=== PATIENT | female | born 1960 | race Caucasian/White ===

== ENCOUNTER → 2017-12-10 | Outpatient (CLI) | payer OTHER ==
--- NOTE | 2017-12-10 12:58 | RAD ---
DATE: 12/10/2017 EXAM: MAMMO JORDANA SCREENING BILATERAL HISTORY: Routine screening COMPARISON: 05/25/2015 This study was interpreted with the benefit of Computerized Aided Detection (CAD). The breast parenchyma is heterogeneously dense, which could reduce sensitivity of mammography. Breast parenchyma level C. FINDINGS: 2-D and 3-D tomosynthesis imaging was performed in CC and MLO projections. The fibroglandular tissues are heterogeneous in a somewhat nodular pattern. At the 9-10:00 location in the right breast approximately 2 cm in the nipple there is a new 13 mm nodule as best delineated on CC tomosynthesis images #40. At the 2-3:00 location in the left breast approximately 8 cm from the nipple there is a 9 mm nodule now evident. It is best delineated on cc tomosynthesis images #45. In retrospect, a slightly smaller opacity was present in this region on the previous study. More inferiorly and posteriorly in the lateral left breast there is an additional 11 mm nodule as best seen on the oblique tomosynthesis images #30. This was not evident on the previous study. No suspicious microcalcifications are evident. Benign-appearing lymph nodes are present in both axillary regions. IMPRESSION: Bilateral breast nodules as described above. Bilateral breast ultrasound are suggested for further evaluation. BI-RADS CATEGORY: 0 INCOMPLETE: NEEDS ADDITIONAL IMAGING EVALUATION AND/OR PRIOR MAMMOGRAMS FOR COMPARISON. RECOMMENDED FOLLOW-UP: ADD ADDITIONAL IMAGING PQRS compliance statement: Patient information was entered into a reminder system with a target due date for the next mammogram. Mammography is a sensitive method for finding small breast cancers, but it does not detect them all and is not a substitute for careful clinical examination. A negative mammogram does not negate a clinically suspicious finding and should not result in delay in biopsying a clinically suspicious abnormality. "Our facility is accredited by the [employer] Mammography Program."
== END | disposition home or self-care (01) ==
LOC: MAMMO 11:25
PROVIDERS: ATTEND Family Medicine
DX: Z12.31 Encounter for screening mammogram for malignant neoplasm of breast (principal)
CPT/HCPCS: 77063; 77067

== ENCOUNTER → 2017-12-13 | Outpatient (CLI) | payer OTHER ==
--- NOTE | 2017-12-13 16:01 | RAD ---
Bilateral breast ultrasound, 12/10/2017: History: Breast nodules A targeted ultrasound exam of the both breasts was performed. On the right, at the 10:00 location approximately 3 cm in the nipple there is a 12 x 10 x 7 mm predominantly cystic nodule. It contains several thin septations. There is posterior acoustic shadowing. This appears to correspond in location to the mammographic abnormality. On the left, at the 2:30 location approximately 8.5 cm from the nipple there is a smooth oval-shaped nodule measuring 9 x 11 x 4 mm. There are tiny cystic components with echogenic septations. It is wider than tall. It probably represents a complicated cyst or fibrocystic lesion. It appears to correspond in location to one of the nodule seen on the mammograms. At the 4:00 location on the left, approximately 8 cm from the nipple there is another oval-shaped smooth nodule demonstrating similar sonographic characteristics. It measures 13 x 7 x 6 mm. It probably corresponds to the other left breast nodule seen mammographically. At the 3:00 location on the left, approximately 8 cm from the nipple there are 2 additional smaller hypoechoic nodules demonstrating similar sonographic characteristics, one of which measures 7 mm in greatest diameter and the other measures 5 mm. A similar small 5 mm nodule is seen at the 3:00 location approximately 3 cm in the nipple. IMPRESSION: 1. Septated cyst in the right breast corresponding to the mammographic abnormality. 2. Numerous small smooth left breast nodules as described above which probably represent complicated cysts or fibrocystic lesions. 3. Sonographic follow-up in 6 months followed by bilateral mammography at one year is suggested. BI-RADS 3-probably benign findings
== END | disposition home or self-care (01) ==
LOC: US 14:32
PROVIDERS: ATTEND Family Medicine
DX: N60.01 Solitary cyst of right breast (principal)
CPT/HCPCS: 76641

== ENCOUNTER → 2019-01-19 | Outpatient (CLI) | payer OTHER ==
--- NOTE | 2019-01-19 11:36 | RAD ---
Abdominal ultrasound without comparison for abnormal liver function tests. Technique an findings: Real-time grayscale and color and spectral Doppler evaluation of the abdominal organs is performed. Gallbladder is surgically absent. The liver measures 18.1 cm and is notable for diffuse fatty infiltration with no focal parenchymal abnormalities. No intra or extrahepatic biliary ductal dilatation. Common bile duct measures 5 mm. The majority of the pancreas and the aorta are obscured by overlying bowel gas. Visualized portions of the pancreatic head are normal. IVC appears patent, though partially obscured as well. The right kidney measures 10.7 x 4.0 x 4.8 cm and the left measures 11.3 x 3.6 x 5.1 cm. No hydronephrosis or focal parenchymal abnormality involving either kidney. No perinephric fluid. The spleen measures 11.2 cm and is grossly unremarkable. No abdominal ascites is seen. IMPRESSION: 1. Hepatic steatosis.. 2. Prior cholecystectomy. Electronically signed by: Power Durand MD (01/19/2019 11:33 AM) [facility]
--- NOTE | 2019-01-21 16:21 | RAD ---
DATE: 01/19/2019 EXAM: MAMMO JORDANA MCCRACKEN, BREAST BILATERAL HISTORY: Abnormal breast ultrasound exam COMPARISON: 06/14/2011, 05/25/2015, 03/12/2018 screening mammographic exams This study was interpreted with the benefit of Computerized Aided Detection (CAD). Breast Density: HETERO The breast parenchyma is heterogenously dense, which could reduce sensitivity of mammography. Breast parenchyma level C. FINDINGS: Parenchymal distribution is stable. No suspicious calcification or mass in the interval. Asymmetries in small masses are stable. No distortion. Limited bilateral breast ultrasound exam was performed. At the right breast 10:00 region 3 cm from the nipple, there is a 1.25 cm x 1.3 cm x 0.7 similar tall septated cystic structure. At the left breast 2:30 region 8.5 cm from the nipple, there is a 0.5 cm x 0.6 cm x 0.2 cm tall septated cystic structure. Consider o'clock region 3 similar from nipple, there is a 0.5 cm x 0.5 cm x 0.2 similar tall complex cystic structure. Previously described described 3:00 region 8 cm from the nipple and 4:00 region 8 cm from the nipple lesions do not have a corresponding finding on today's exam. IMPRESSION: Stable mammographic exam. Stable breast lesions on ultrasound exam. One year follow-up ultrasound is recommended to assess stability. BI-RADS CATEGORY: 3 PROBABLY BENIGN FINDING(S)-SHORT INTERVAL FOLLOW-UP SUGGESTED RECOMMENDED FOLLOW-UP: 12M 12 MONTH FOLLOW-UP PQRS compliance statement: Patient information was entered into a reminder system with a target due date in one year for the next mammogram. Mammography is a sensitive method for finding small breast cancers, but it does not detect them all and is not a substitute for careful clinical examination. A negative mammogram does not negate a clinically suspicious finding and should not result in delay in biopsying a clinically suspicious abnormality. "Our facility is accredited by the [employer] Mammography Program."
== END | disposition home or self-care (01) ==
LOC: US 07:37
PROVIDERS: ATTEND Family Medicine
DX: K76.0 Fatty (change of) liver, not elsewhere classified (principal); N63.20 Unspecified lump in the left breast, unspecified quadrant; N63.10 Unspecified lump in the right breast, unspecified quadrant; N64.89 Other specified disorders of breast; Z90.49 Acquired absence of other specified parts of digestive tract
CPT/HCPCS: 76641; 76700; 77066; G0279; 77062

== ENCOUNTER → 2019-04-29 | Outpatient (CLI) | payer OTHER ==
--- NOTE | 2019-04-29 12:55 | RAD ---
EXAM: Left shoulder, 3 views. HISTORY: Pain. COMPARISON: None. FINDINGS: 3 views of the left shoulder obtained. There is no fracture, dislocation or subluxation. There is small lucency along the distal clavicle which is likely developmental rather than a subchondral cyst or erosion. IMPRESSION: No acute osseous finding. Electronically signed by: Carmela Canchola MD (04/29/2019 12:52 PM) [id number]
== END | disposition home or self-care (01) ==
LOC: DXRAD 11:41
PROVIDERS: ATTEND Family Medicine
DX: M25.512 Pain in left shoulder (principal)
CPT/HCPCS: 73030

== ENCOUNTER → 2019-12-14 | Outpatient (CLI) | payer OTHER ==
--- NOTE | 2019-12-14 17:28 | RAD ---
DATE: 12/14/2019 1:20 PM EXAM: BREAST BILATERAL, MAMMO JORDANA DIAG BILAT HISTORY: Patient is due for screening but was recommended for short-term follow-up probably benign findings in the left breast COMPARISON: 01/19/2019, 12/10/2017 Bilateral CC and MLO views of the breasts were performed. Bilateral breast tomosynthesis was performed in CC and MLO projections. This study was interpreted with the benefit of Computerized Aided Detection (CAD). Targeted ultrasound of both breasts in the areas of previous sonographic interest was also performed. FINDINGS: Breast Density: HETERO The breast parenchyma Is heterogeneously dense, which could reduce sensitivity of mammography. Breast parenchyma level C No suspicious masses, microcalcifications or architectural distortion is present to suggest malignancy in either breast. The visualized axillae are unremarkable. Targeted ultrasound right breast identified sonographically benign cluster of cysts measuring 1.3 cm at the 10:00 position 3 cm from the nipple. Targeted ultrasound left breast identified parallel orientation hypoechoic circumscribed nodules with varying degrees of low level internal echoes, measuring 5 mm at the 3:00 position 3 cm from the nipple, 8 mm at the 3:00 position 5 cm from the nipple and 5 mm at the 12:00 position 3 cm from the nipple. No suspicious sonographic findings were identified. Retroareolar ultrasound left breast was unremarkable. IMPRESSION: Benign findings on bilateral mammography and targeted breast ultrasound. BI-RADS CATEGORY: 2 BENIGN FINDING(S) RECOMMENDED FOLLOW-UP: 12M 12 MONTH FOLLOW-UP Annual screening mammography is recommended, unless clinically indicated sooner based on symptoms or change in physical exam. PQRS compliance statement: Patient information was entered into a reminder system with a target due date 12/14/2020 for the next mammogram. Mammography is a sensitive method for finding small breast cancers, but it does not detect them all and is not a substitute for careful clinical examination. A negative mammogram does not negate a clinically suspicious finding and should not result in delay in biopsying a clinically suspicious abnormality. "Our facility is accredited by the [employer] Mammography Program."
== END | disposition home or self-care (01) ==
LOC: MAMMO 12:32
PROVIDERS: ATTEND Family Medicine
DX: R92.2 Inconclusive mammogram (principal); N60.01 Solitary cyst of right breast; N63.21 Unspecified lump in the left breast, upper outer quadrant
CPT/HCPCS: 76641; 77066; G0279; 77062

== ENCOUNTER → 2021-08-25 | Outpatient (CLI) | payer OTHER ==
--- NOTE | 2021-08-25 16:45 | RAD ---
Exam: XR SHOULDER_LEFT 2+ VIEWS History: Injury left shoulder exercising. Comparison: 04/29/2019 Findings: Osseous mineralization is normal. No acute fracture or dislocaton. No significant degenerative change s. Soft tissues are unremarkable. Impression: 1. No acute osseous abnormality of the left shoulder. Electronically signed by: Luis Alberto Mays MD (08/25/2021 4:43 PM) [id number]
--- NOTE | 2021-08-28 08:56 | RAD ---
BILATERAL SCREENING MAMMOGRAM History: Routine screening. Comparison: Most recently on 12/14/2019. Technique: Routine 2D and 3D tomosynthesis digital mammogram views were obtained bilaterally. Interpr etation was assisted with the use of computer-aided detection. Findings: Breast Tissue Density C : The breasts are heterogeneously dense, which may obscure small masses. Scattered asymmetries are without significant change. No newly seen mass, architectural distortion or suspicious microcalcifications. IMPRESSION: No mammographic evidence of malignancy. Recommend routine screening mammography in one year. BI-RADS category 2: Benign findings. Patient information is entered into the reminder system with a target due date for the next screening mammogram. "Our facility is accredited by the [employer] Mammography Program." Electronically signed by: GUNNAR SALEH MD (08/28/2021 8:53 AM) [id number]
== END ==
LOC: MAMMO 15:20
PROVIDERS: ATTEND Family Medicine
DX: Z12.31 Encounter for screening mammogram for malignant neoplasm of breast (principal); M25.512 Pain in left shoulder
CPT/HCPCS: 73030; 77063; 77067